=== PATIENT | male | born 1995 | race Caucasian/White ===

== ENCOUNTER 2022-05-23 11:13 | Outpatient (CLI) | payer OTHER, SELFPAY ==
--- NOTE | ~2022-05-23 | XR_ITS ---
EXAM: XR knee RT min 4V DATE: 05/23/2022 14:13 HISTORY: M25.561 - Pain in right knee . COMPARISON: None available. FINDINGS: Normal mineralization. No fracture or dislocation. No lytic or blastic lesion. Mild medial joint space narrowing in the [place] view. Physes are maintained. No erosion or periosteal change. Soft tissues within normal limits. Small volume joint fluid IMPRESSION: No acute osseous finding in the right knee. Mild degenerative change in the medial compar tment. Small volume right knee joint effusion. Reviewed, dictated and finalized at location K. IMPRESSION: No acute osseous finding in the right knee. Mild degenerative knott e in the medial compartment. Small volume right knee joint effusion.
[2022-05-23 18:58] LABS: Hematocrit 47.5 % (42.0-52.0); Hemoglobin 15.9 g/dL (14.0-18.0); Mean Corpuscular HGB Conc 33.5 g/dl (32-36); Mean Corpuscular Hemoglobin 32.1 pg (26-34); Mean Corpuscular Volume 95.8 fl (80-100); Mean Platelet Volume 10.6 fl (7.4-10.4); Platelet Count Result 309 k/mm3 (150-375); Red Blood Count 4.96 M/mm3 (4.6-6.20); Red Cell Distribution Width 12.3 % (11.5-14.5); White Blood Count 5.4 K/mm3 (4.5-10.0)
[2022-05-23 19:51] LABS: Alanine Aminotransferase 31 U/L (6-50); Albumin Level 5.1 g/dL (3.5-5.1); Alkaline Phosphatase 54 U/L (38-126); Anion Gap 4 mmol/L (8-16); Aspartate Amino Transferase 96 U/L (17-59); Bilirubin,Total 0.5 mg/dL (0.2-1.3); Blood Urea Nitrogen 13 mg/dL (9-20); Calcium 9.5 mg/dL (8.4-10.2); Carbon Dioxide 32 mmol/L (22-30); Chloride 100 mmol/L (98-107); Cholesterol 87 mg/dL (0-200); Estimated Glomerular Filt Rate > 60; Glucose 82 mg/dL (65-110); HDL Direct 40 mg/dL; Potassium 3.9 mmol/L (3.4-5.0); Sodium 136 mmol/L (137-145); Triglycerides 61 mg/dL (<150)
[2022-05-23 21:10] LABS: LDL Cholesterol Direct < 30 mg/dL
== END 2022-05-23 11:14 | disposition home or self-care (01) ==
PROVIDERS: PCP Family Medicine; Visit Provider Family Medicine
DX: Z00.00 Encounter for general adult medical examination without abnormal findings (principal); M25.461 Effusion, right knee
CPT/HCPCS: 36415; 73564; 80053; 80061; 85027

== ENCOUNTER 2023-06-11 13:43 | Outpatient (CLI) | payer OTHER, SELFPAY ==
[2023-06-11 19:13] LABS: Hematocrit 47.8 % (42.0-52.0); Mean Corpuscular HGB Conc 33.5 g/dl (32-36); Mean Corpuscular Hemoglobin 32.4 pg (26-34); Mean Corpuscular Volume 96.8 fl (80-100); Mean Platelet Volume 10.9 fl (7.4-10.4); Platelet Count Result 313 k/mm3 (150-375); Red Blood Count 4.94 M/mm3 (4.6-6.20); Red Cell Distribution Width 12.1 % (11.5-14.5); White Blood Count 5.4 K/mm3 (4.5-10.0)
[2023-06-11 19:50] LABS: Alanine Aminotransferase 26 U/L (6-50); Albumin Level 4.9 g/dL (3.5-5.1); Alkaline Phosphatase 45 U/L (38-126); Anion Gap 9 mmol/L (8-16); Aspartate Amino Transferase 78 U/L (17-59); Bilirubin,Total 0.5 mg/dL (0.2-1.3); Blood Urea Nitrogen 14 mg/dL (9-20); Calcium 9.2 mg/dL (8.4-10.2); Carbon Dioxide 27 mmol/L (22-30); Chloride 104 mmol/L (98-107); Estimated Glomerular Filt Rate > 60; Glucose 92 mg/dL (65-110); Sodium 140 mmol/L (137-145)
[2023-06-11 20:06] LABS: Erythrocyte Sedimentation Rate 1 mm/hr (0-20)
[2023-06-11 20:52] LABS: Folic Acid 12.5 ng/mL (2.76->20)
== END 2023-06-11 13:44 | disposition home or self-care (01) ==
PROVIDERS: PCP Nurse Practitioner Adult Health; Visit Provider Nurse Practitioner Adult Health
DX: G44.009 Cluster headache syndrome, unspecified, not intractable (principal)
CPT/HCPCS: 36415; 80053; 82607; 82746; 84443; 85027; 85652

== ENCOUNTER 2023-06-30 11:14 | Emergency (ER) | payer OTHER, SELFPAY ==
--- NOTE | ~2023-06-30 | XR_ITS ---
XR hand RT min 3V DATE: 06/30/2023 11:27 INDICATION: Injury. Distal metacarpal pain. TECHNIQUE: 3 views COMPARISON: None FINDINGS: No fracture or dislocation, periosteal reaction or bone destruction, joint space narrowing, erosive change or chondrocalcinosis. IMPRESSION: Negative Reviewed, dictated and finalized at location A. IMPRESSION: Negative
[2023-06-30 11:16] VITALS: BP 131/82; PULSE 71; RESP 16; TEMP 36.5; O2SAT 100
--- NOTE | 2023-06-30 12:37 | ED.GENADULT ---
HPI - General Adult General Chief complaint: Extremity Injury, Upper Stated complaint: right hand injury Time Seen by Provider: 06/30/23 11:56 History of Present Illness HPI narrative: Devon Tapia is a 28 y/o male without significant medical history who states that he had his hand wrapped with a rope/leash that was connected to a tractor pull as a game/for fun at a family place yesterday and he pulling and then it yanked his hand and he immediately had sever pain to the top of his right hand and quickly got his hand untied from the rope. He states that the pain has been consistent maybe a little better today, but starting to have a lot of swelling and bruising to this right hand. Denies numbness tingling to his hand/ fingers Related Data Allergies Allergy/AdvReac Type Severity Reaction Status Date / Time ragweed pollen Allergy Unknown Verified 06/11/23 13:10 Review of Systems Review of Systems: CONSTITUTIONAL: Denies fever, chills, or sweats. EYES: Denies visual changes, redness, or discharge. ENT: Denies rhinorrhea, congestion, sore throat, or otalgia. CARDIOVASCULAR: Denies chest pain, palpitations, or edema. RESPIRATORY: Denies cough or dyspnea. GASTROINTESTINAL: Denies abdominal pain, nausea, vomiting, or diarrhea. GENITOURINARY: Denies dysuria or hematuria. SKIN: Denies rash or itching. MUSCULOSKELETAL: Denies back pain, complains of a lot of pain to the top of his right hand some to the antonio aspect NEUROLOGIC: Denies headache, numbness, dizziness, or weakness. PSYCHIATRIC: Denies anxiety or depression. 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 HEAD: Normocephalic, atraumatic. EYES: PERRLA and EOMI. ENT: Nares clear, no rhinorrhea or epistaxis. Mucous membranes moist. Oropharynx without tonsillar hypertrophy exudate or other lesions. NECK: Supple. No adenopathy or masses. No carotid bruits or JVD CHEST: Clear to auscultation. No respiratory distress. No wheezes rales or rhonchi HEART: Regular rate and rhythm. No murmur heard. Normal peripheral pulses. ABDOMEN: Soft, nontender, nondistended, normal active bowel sounds. EXTREMITIES: Normal range of motion. Swelling noted to the dorsum aspect and the palmar aspect of his right hand/ ecchymosis to the palmar aspect of his hand - normal cap refill/ pulses present SKIN: Warm, dry, no rash. NEURO: No focal deficits. Alert and oriented x3. PSYCH: Normal mood and affect. Course Vital Signs Vital signs: Vital Signs Temperature 36.5 C 06/30/23 11:16 Pulse Rate 71 06/30/23 11:16 Respiratory Rate 16 06/30/23 11:16 Blood Pressure 131/82 06/30/23 11:16 Pulse Oximetry 100 06/30/23 11:16 Oxygen Delivery Room Air 06/30/23 11:16 Temperature 36.5 C 06/30/23 11:16 Pulse Rate 71 06/30/23 11:16 Respiratory Rate 16 06/30/23 11:16 Blood Pressure 131/82 06/30/23 11:16 Pulse Oximetry 100 06/30/23 11:16 Oxygen Delivery Room Air 06/30/23 11:16 Medical Decision Making MDM Narrative Medical decision making narrative: Mary
[2023-06-30] MEDS: ACETAMINOPHEN 500 MG TABLET 1000 MG PO (13:12)
== END 2023-06-30 13:10 | disposition home or self-care (01) ==
PROVIDERS: Emergency Provider Nurse Practitioner Family; PCP Nurse Practitioner Adult Health
DX: S60.221A Contusion of right hand, initial encounter (principal); X50.9XXA Other and unspecified overexertion or strenuous movements or postures, initial encounter
CPT/HCPCS: 29125; 73130; 99283; A9270